=== PATIENT | female | born 1945 | race Caucasian/White ===

== ENCOUNTER 2018-05-11 15:20 | Emergency (ER) | payer OTHER ==
--- OUTSIDE RECORDS SUMMARY | 2018-05-11 15:22 | XMS REPORT | Clinical Summary ---
:1945 Author Organization [facility] Address [address] [place] [address] Care Team Providers Name Role Phone Aleksey Aiken MD Primary Care Provider Allergies Active Allergy Reactions Severity Noted Date Comments Sulfamethoxazole-Trimethoprim 10/12/2016 Varenicline 06/24/2016 Codeine 06/24/2016 Penicillins 06/24/2016 Rifampin 10/12/2016 Medications Medication Sig Dispensed Refills Start Date End Date Status esomeprazole (NexIUM) Take 40 mg 0 Active 20 MG capsule by mouth daily before breakfast. aspirin (ECOTRIN) 81 Take 81 mg 0 Active MG enteric coated by mouth tablet daily. ALPRAZolam (XANAX) 1 Take 1 mg by 0 Active MG tablet mouth 2 (two) times a day as needed for anxiety. PROPYLENE GLYCOL/PEG Apply 1 drop 0 Active 400/PF (SYSTANE, PF, to eye 2 OPHT) (two) times a day as needed. atorvastatin TK 1 T PO 0 11/17/2017 Active (LIPITOR) 20 MG QPM tablet SYMBICORT 160-4.5 INL 2 PFS PO 5 11/11/2017 Active mcg/actuation inhaler BID cyclobenzaprine TK 1 T PO HS 1 11/14/2017 Active (FLEXERIL) 10 mg tablet losartan (COZAAR) 50 Take 50 mg 0 11/22/2017 Discontinued MG tablet by mouth daily as needed. BUDESONIDE/FORMOTEROL Inhale 1 0 11/22/2017 Discontinued FUMARATE (SYMBICORT puff 2 (two) INHL) times a day. simvastatin (ZOCOR) Take 1 90 tablet 3 2016 11/22/2017 Discontinued 40 MG tablet (40 tabletIndications: mg total) by PAD (peripheral mouth artery disease) nightly. 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 06/24/2016 Essential hypertension 06/24/2016 Encounters Date Type Specialty Care Team Description 11/22/2017 Office Visit Cardiology Andrew Peter MD PAD (peripheral artery disease) (Primary Dx) after 05/10/2017 Family History Medical History Relation Name Comments Heart disease Father Hypertension Father Heart disease Mother Hypertension Mother Relation Name Status Comments Father Mother Social History Tobacco Use Types Packs/Day Years Used Date Current Every Day Smoker 0.5 Smokeless Tobacco: Never Used Alcohol Use Drinks/Week oz/Week Comments No Sex Assigned at Date Recorded Not on file Job Start Date Occupation Industry Not on file Not on file Not on file Travel History Travel Start Travel End No recent travel history available. Last Filed Vital Signs Not on file Plan of Treatment Date Type Specialty Care Team Description 05/30/2018 Office Visit Cardiology Andrew Peter MD [address] [address] [phone] 11/21/2018 Office Visit Cardiology Andrew Peter MD [address] [id number] Health Maintenance Due Date Last Done Comments BREAST CANCER SCREENING 12/29/1995 COLON CANCER SCREENING 12/29/1995 SHINGRIX VACCINE (1 of 2) 12/29/1995 ZOSTER VACCINE 2005 PNEUMOCOCCAL POLYSACCHARIDE VACCINE AGE 65 AND OVER 2010 PNEUMOCOCCAL-13 2010 INFLUENZA VACCINE 01/11/2018 Results Not on fileafter 05/10/2017 Insurance Payer Benefit Plan / Group Subscriber ID Type Phone Address AETNA MEDICARE AETNA MEDICARE HMO/PPO [facility] xxxxxxxx HMO Advance Directives Patient has advance care planning documents on file. For more information, please contact:Joseph Garvin[address] [place] [address]
[2018-05-11 17:52] LABS: Absolute Lymphocytes (CBC) 2.2 K/uL (0.7-4.9); Absolute Monocytes 0.5 K/uL (0.1-1.3); Basophils % 0.5 % (0-1.3); Eosinophils % 1.8 % (0-4.4); Hematocrit 43.4 % (36.0-45.0); Lymphocytes % 22.4 % (15.3-44.8); MCV 90.8 fL (80-100); MPV 9.6 fL (7.6-11.3); Monocytes % 4.8 % (3.3-12.3); RBC Red Blood Cell Count 4.78 M/uL (3.86-4.86)
[2018-05-11 18:19] LABS: Magnesium 2.3 mg/dL (1.8-2.4); Potassium 3.6 mmol/L (3.5-5.1); Thyroid Stimulating Hormone 1.27 uIU/mL (0.360-3.740)
--- NOTE | 2018-05-11 18:31 | ER ---
Nurse's Notes [facility] Name: Mario Neely Age: 72 yrs Sex: Female : 1945 Arrival Date: 05/11/2018 Time: 15:27 Bed 23 Private MD: Aleksey Aiken T Diagnosis: Muscle weakness (generalized) Presentation: 05/11 15:34 Presenting complaint: Patient states: Reports low blood pressure readings at home on home wrist monitor on left arm only. Symptoms started 3 months ago. Transition of care: patient was not received from another setting of care. Onset of symptoms was January 2018. Risk Assessment: Do you want to hurt yourself or someone else? Patient reports no desire to harm self or others. Initial Sepsis Screen: Does the patient meet any 2 criteria? No. Patient's initial sepsis screen is negative. Does the patient have a suspected source of infection? No. Patient's initial sepsis screen is negative. Care prior to arrival: None. 15:34 Method Of Arrival: Ambulatory 15:34 Acuity: ALISHA 3 aj Triage Assessment: 15:36 General: Appears in no apparent distress. comfortable, Behavior is calm, cooperative, aj appropriate for age. Pain: Denies pain. Neuro: Level of Consciousness is awake, alert, obeys commands, Oriented to person, place, time, situation, Appropriate for age. Respiratory: Airway is patent Respiratory effort is even, unlabored, Respiratory pattern is regular, symmetrical. Derm: Skin is intact, is healthy with good turgor, Skin is pink, warm \T\ dry. normal. Historical: - Allergies: 15:36 Codeine; aj 15:36 PENICILLINS; aj - Home Meds: 15:36 alprazolam 1 mg Oral Tb24 1 tab twice a day [Active]; aspirin 81 mg Oral TbEC 1 tab aj once daily [Active]; Nexium 40 mg Oral cpDR 1 cap once daily [Active]; - PMHx: 15:36 Anxiety; blockage in leg; CAD; GERD; Hypertension; aj - PSHx: 15:36 Hysterectomy; left leg stent; D \T\ C; aj - Immunization history:: Adult Immunizations up to date. - Social history:: Smoking status: Patient uses tobacco products, smokes one pack cigarettes per day. - Ebola Screening: : Patient negative for fever greater than or equal to 101.5 degrees Fahrenheit, and additional compatible Ebola Virus Disease symptoms Patient denies exposure to infectious person Patient denies travel to an Ebola-affected area in the 21 days before illness onset No symptoms or risks identified at this time. Screenin:40 Abuse screen: Denies threats or abuse. Denies injuries from another. Nutritional ed1 screening: No deficits noted. Tuberculosis screening: No symptoms or risk factors identified. Fall Risk None identified. Assessment: 16:58 Reassessment: Pt. refused chest x-ray. ed1 17:40 Reassessment: Patient appears in no apparent distress at this time. No changes from ed1 previously documented assessment. Patient and/or family updated on plan of care and expected duration. Pain level reassessed. Patient is alert, oriented x 3, equal unlabored respirations, skin warm/dry/pink. Patient denies pain at this time. Vital Signs: 15:36 BP 158 / 61; Pulse 73; Resp 20; Temp 98.1; Pulse Ox 97% on R/A; Weight 67.13 kg; Height aj 5 ft. 2 in. (157.48 cm); 17:22 BP 127 / 48 LA Supine (auto/reg); ed1 17:22 BP 124 / 52 RA Supine (auto/reg); ed1 17:40 BP 99 / 41 LA Supine (auto/reg); Pulse 57; Resp 18; Pulse Ox 99% on R/A; Pain 0/10; ed1 18:40 BP 103 / 39 LA Standing (auto/reg); Pulse 67; ed1 15:36 Body Mass Index 27.07 (67.13 kg, 157.48 cm) aj ED Course: 15:27 Patient arrived in ED. mr 15:27 Aleksey Aiken MD is Private Physician. mr 15:35 Triage completed. aj 15:36 Arm band placed on left wrist. Patient placed in an exam room. aj 15:38 Jennifer Villanueva LVN is Primary Nurse. ed1 15:40 Patient has correct armband on for positive identification. Placed in gown. Bed in low ed1 position. Call light in reach. Side rails up X 1. Pulse ox on. NIBP on. 15:51 Shahab Holder PA is PHCP. jr8 15:51 Frandy Eaton MD is Attending Physician. jr8 16:44 EKG done, by surveillance technician. reviewed by Shahba RENE. sm3 18:30 Aleksey Aiken MD is Referral Physician. jr8 19:02 No provider procedures requiring assistance completed. IV discontinued, intact, ed1 bleeding controlled, No redness/swelling at site. Pressure dressing applied. Administered Medications: No medications were administered Outcome: 18:30 Discharge ordered by . jr8 19:02 Discharged to home ambulatory. ed1 19:02 Condition: good 19:02 Discharge instructions given to patient, Instructed on discharge instructions, follow up and referral plans. Demonstrated understanding of instructions, follow-up care. 19:03 Patient left the ED. ed1 Signatures: Ariana Gutierrez, RN Melody Mckinney mr Jennifer Villanueva, THRESHER BROOMCORN THRESHER BROOMCORN ed1 Shahab Holder PA PA [facility] Alexandra Sharp 3
--- NOTE | 2018-05-11 18:31 | EDPHYS ---
Physician Documentation [facility] Name: Mario Neely Age: 72 yrs Sex: Female : 1945 Arrival Date: 05/11/2018 Time: 15:27 Bed 23 Private MD: Aleksey Aiken T ED Physician Frandy Eaton HPI: 05/11 17:37 This 72 yrs old Female presents to ER via Ambulatory with complaints of Blood jr8 Pressure Problem. 17:37 Associated signs and symptoms: Pertinent positives: general fatigue. The patient has jr8 not experienced similar symptoms in the past. The patient has not recently seen a physician. Patient stated that she has been checking her BP with her wrist device. Has been reading low lately. Stated that she has had general fatigue as well. Denies any other symptoms . Historical: - Allergies: 15:36 Codeine; aj 15:36 PENICILLINS; aj - Home Meds: 15:36 alprazolam 1 mg Oral Tb24 1 tab twice a day [Active]; aspirin 81 mg Oral TbEC 1 tab aj once daily [Active]; Nexium 40 mg Oral cpDR 1 cap once daily [Active]; - PMHx: 15:36 Anxiety; blockage in leg; CAD; GERD; Hypertension; aj - PSHx: 15:36 Hysterectomy; left leg stent; D \T\ C; aj - Immunization history:: Adult Immunizations up to date. - Social history:: Smoking status: Patient uses tobacco products, smokes one pack cigarettes per day. - Ebola Screening: : Patient negative for fever greater than or equal to 101.5 degrees Fahrenheit, and additional compatible Ebola Virus Disease symptoms Patient denies exposure to infectious person Patient denies travel to an Ebola-affected area in the 21 days before illness onset No symptoms or risks identified at this time. ROS: 17:37 Eyes: Negative for injury, pain, redness, and discharge, ENT: Negative for injury, jr8 pain, and discharge, Neck: Negative for injury, pain, and swelling, Cardiovascular: Negative for chest pain, palpitations, and edema, Respiratory: Negative for shortness of breath, cough, wheezing, and pleuritic chest pain, Abdomen/GI: Negative for abdominal pain, nausea, vomiting, diarrhea, and constipation, Back: Negative for injury and pain, MS/Extremity: Negative for injury and deformity, Skin: Negative for injury, rash, and discoloration, Neuro: Negative for headache, weakness, numbness, tingling, and seizure. 17:37 Constitutional: Positive for fatigue. Exam: 17:37 Eyes: Pupils equal round and reactive to light, extra-ocular motions intact. Lids and jr8 lashes normal. Conjunctiva and sclera are non-icteric and not injected. Cornea within normal limits. Periorbital areas with no swelling, redness, or edema. ENT: Nares patent. No nasal discharge, no septal abnormalities noted. Tympanic membranes are normal and external auditory canals are clear. Oropharynx with no redness, swelling, or masses, exudates, or evidence of obstruction, uvula midline. Mucous membranes moist. Neck: Trachea midline, no thyromegaly or masses palpated, and no cervical lymphadenopathy. Supple, full range of motion without nuchal rigidity, or vertebral point tenderness. No Meningismus. Cardiovascular: Regular rate and rhythm with a normal S1 and S2. No gallops, murmurs, or rubs. Normal PMI, no JVD. No pulse deficits. Respiratory: Lungs have equal breath sounds bilaterally, clear to auscultation and percussion. No rales, rhonchi or wheezes noted. No increased work of breathing, no retractions or nasal flaring. Abdomen/GI: Soft, non-tender, with normal bowel sounds. No distension or tympany. No guarding or rebound. No evidence of tenderness throughout. Back: No spinal tenderness. No costovertebral tenderness. Full range of motion. Skin: Warm, dry with normal turgor. Normal color with no rashes, no lesions, and no evidence of cellulitis. MS/ Extremity: Pulses equal, no cyanosis. Neurovascular intact. Full, normal range of motion. Neuro: Awake and alert, GCS 15, oriented to person, place, time, and situation. Cranial nerves II-XII grossly intact. Motor strength 5/5 in all extremities. Sensory grossly intact. Cerebellar exam normal. Normal gait. 17:39 ECG was reviewed by the Attending Physician. [facility] Vital Signs: 15:36 BP 158 / 61; Pulse 73; Resp 20; Temp 98.1; Pulse Ox 97% on R/A; Weight 67.13 kg; Height aj 5 ft. 2 in. (157.48 cm); 17:22 BP 127 / 48 LA Supine (auto/reg); ed1 17:22 BP 124 / 52 RA Supine (auto/reg); ed1 17:40 BP 99 / 41 LA Supine (auto/reg); Pulse 57; Resp 18; Pulse Ox 99% on R/A; Pain 0/10; ed1 18:40 BP 103 / 39 LA Standing (auto/reg); Pulse 67; ed1 15:36 Body Mass Index 27.07 (67.13 kg, 157.48 cm) aj MDM: 15:51 Patient medically screened. 8 18:29 Data reviewed: vital signs, nurses notes, lab test result(s), EKG, and as a result, I 8 will discharge patient. Data interpreted: Pulse oximetry: on room air is 99 %. Interpretation: normal. Counseling: I had a detailed discussion with the patient and/or guardian regarding: the historical points, exam findings, and any diagnostic results supporting the discharge/admit diagnosis, lab results, the need for outpatient follow up, a family practitioner, to return to the emergency department if symptoms worsen or persist or if there are any questions or concerns that arise at home. 05/11 16:12 Order name: Basic Metabolic Panel; Complete Time: 18:21 [facility] 05/11 16:12 Order name: CBC with Diff; Complete Time: 17:59 05/11 16:12 Order name: Magnesium; Complete Time: 18:21 05/11 16:12 Order name: TSH; Complete Time: 18:21 [facility] 05/11 16:12 Order name: T4 Free; Complete Time: 18:21 [facility] 05/11 16:12 Order name: EKG; Complete Time: 16:19 05/11 16:12 Order name: EKG - Nurse/Tech; Complete Time: 17:30 05/11 16:12 Order name: IV Saline Lock; Complete Time: 17:41 05/11 16:12 Order name: Labs collected and sent; Complete Time: 17:41 [facility] 05/11 16:12 Order name: O2 Per Protocol; Complete Time: 17:29 05/11 16:12 Order name: O2 Sat Monitoring; Complete Time: 17: [facility] 05/11 16:13 Order name: Blood Pressure Recheck: Both arms; Complete Time: 17: EC:39 Rate is 61 beats/min. Rhythm is regular, Normal Sinus Rhythm. QRS [place] is Normal. [place] jr8 interval is normal at 128 msec. QRS interval is normal at 84 msec. QT interval is normal at 418 msec. No Q waves. T waves are Normal. No ST changes noted. Clinical impression: Normal ECG. Interpreted by me. Reviewed by me. Administered Medications: No medications were administered Disposition: 05/12 07:44 Co-signature as Attending Physician, Frandy Eaton MD I agree with the assessment and kdr plan of care. Disposition: 05/11/18 18:30 Discharged to Home. Impression: Muscle weakness (generalized). - Condition is Stable. - Discharge Instructions: Hypotension, Weakness. - Medication Reconciliation Form, Thank You Letter, Antibiotic Education, Prescription Opioid Use form. - Follow up: Aleksey Aiken MD; When: 2 - 3 days; Reason: Recheck today's complaints, Continuance of care, Re-evaluation by your physician. - Problem is new. - Symptoms have improved. Signatures: Dispatcher [employer] [facility] Ariana Gutierrez RN RN aj Rittger, Kevin, MD MD [facility] Jennifer Villanueva, YARN REWINDER YARN REWINDER ed1 Shahab Holder PA PA jr8 Corrections: (The following items were deleted from the chart) 05/11 17:02 16:16 Chest Single View+RAD.RAD.BRZ ordered. [facility] 17:30 16:12 Cardiac monitoring ordered. jr8 ed1 19:03 18:30 05/11/2018 18:30 Discharged to Home. Impression: Muscle weakness (generalized). ed1 Condition is Stable. Forms are Medication Reconciliation Form, Thank You Letter, Antibiotic Education, Prescription Opioid Use. Follow up: Aleksey Aiken; When: 2 - 3 days; Reason: Recheck today's complaints, Continuance of care, Re-evaluation by your physician. Problem is new. Symptoms have improved. jr8
--- NOTE | 2018-05-12 07:19 | EKG ---
Test Date: 2018-05-11 Test Time: 16:29:19 Power Plant Operations Manager: MILA MEASUREMENT RESULTS: Intervals: Rate: 61 FL: 128 QRSD: 84 QT: 416 QTc: 418 [place]: P: 76 FL: 128 QRS: 75 T: 61 INTERPRETIVE STATEMENTS: Normal sinus rhythm Normal ECG Compared to ECG 07/05/2016 01:44:58 No significant changes Electronically Signed On 05-12-18 07:18:53 SHIPPING RECEIVING MANAGER by Donald Ramon
== END 2018-05-11 19:03 | disposition home or self-care (01) ==
LOC: ER 15:20
DX: M62.81 Muscle weakness (generalized) (principal); I10 Essential (primary) hypertension; I25.10 Atherosclerotic heart disease of native coronary artery without angina pectoris; F17.210 Nicotine dependence, cigarettes, uncomplicated; Z79.82 Long term (current) use of aspirin; Z88.0 Allergy status to penicillin; Z88.5 Allergy status to narcotic agent
CPT/HCPCS: 36415; 80048; 83735; 84439; 84443; 85025; 93005; 99283